=== PATIENT | male | born 1955 | race Caucasian/White ===

== ENCOUNTER 2020-01-30 01:11 | Emergency (ER) | payer OTHER, MEDICARE, SELFPAY ==
[2020-01-30 01:16] VITALS: BP 142/85; PULSE 77; RESP 18; O2SAT 95; BMI 24.3
--- NOTE | 2020-01-30 01:17 | ECG_ITS ---
Measurements Intervals [place] Rate: 71 P: 72 [place]: 143 QRS: 73 QRSD: 85 T: 62 QT: 382 QTc: 417 SINUS RHYTHM No previous ECG available for comparison Electronically Signed On 01-30-2020 13:39:13 CDT by Leidy Dorman M.D. [email or web address]
--- NOTE | 2020-01-30 01:19 | W.ED.GENADLT ---
HPI - General Adult General: Chief complaint: Psychiatric Symptoms Stated complaint: mhe Time Seen by Provider: 01/30/20 01:17 History of Present Illness: HPI narrative: Bret is a 64-year-old male who has moved here from [place]. He states he has been depressed which is a ongoing problem for him. He is not suicidal or homicidal he adamantly states this. The patient states that he is been crying off and on for the past 3 days. He states that in [place] he treats all these symptoms such as depression as well as his symptoms from PTSD and paranoid schizophrenia with cannabis. He moved here thinking that he would have cannabis available but none of the dispensary's are open at this time. He is asking for something prescription for his symptoms until he can get back to [place]. Review of Systems General: Reports: 10 or more systems reviewed and unremarkable except in HPI and below PFSH ED PFSH: Medical History Depression Paranoid schizophrenia PTSD (post-traumatic stress disorder) Social History Smoking and tobacco status: current some day smoker Physical Exam Const: COMMON NORMALS: no apparent distress, oriented x3, no limitations, healthy appearing and well nourished EXAM LIMITATIONS: no altered mental status GENERAL APPEARANCE: cooperative, well kempt and well developed ORIENTATION/CONSCIOUSNESS: Yes awake HENMT: COMMON NORMALS: normocephalic, head/scalp atraumatic, hearing grossly normal bilaterally, external ears normal, EAC's normal, external nose normal and moist oral mucous membranes HEAD & SCALP: normal to inspection, normocephalic and atraumatic FACE & SINUS: normal facial exam and face symmetric NOSE: external nose normal and nares normal EXTERNAL EAR: Yes external ears normal EXTERNAL AUDITORY CANAL: EAC's normal MOUTH: oral and palatal mucosa normal and tongue normal Eye: COMMON NORMALS: PERRL, EOMs intact bilaterally, conjunctivae normal and no scleral icterus GENERAL EYE: normal appearance of both eyes and normal light reflex CONJUNCTIVA: Yes conjunctivae normal SCLERA: sclerae normal CORNEA: Yes corneas normal PUPIL: Yes PERRL DIRECT OPHTHALMOSCOPY: Yes normal light reflex Neck/C-Spine: COMMON NORMALS: full ROM, no lymphadenopathy, supple, no meningeal signs and no JVD GENERAL: Yes normal visual inspection and Yes trachea midline CERVICAL SPINE: Yes cervical ROM normal Chest: COMMONS NORMALS: inspection of chest normal and palpation of chest normal Resp: COMMON NORMALS: normal respiratory effort, no retractions, no use of accessory muscles and clear to auscultation bilaterally EFFORT & INSPECTION: Yes able to speak in complete sentences AUSCULTATION: clear to auscultation bilaterally Cardio: COMMON NORMALS: no JVD, regular rate, regular rhythm, S1 normal heart sound, S2 normal heart sound, no gallops, no clicks, no murmurs and no rub JUGULAR VENOUS DISTENTION: no JVD RATE: regular rate RHYTHM: regular rhythm HEART SOUNDS: S1 normal and S2 normal GI: COMMON NORMALS: soft to palpation, non-tender, no hepatosplenomegaly and no masses INSPECTION: Yes normal to inspection PALPATION: Yes soft and Yes no hepatosplenomegaly : COMMON NORMALS: Yes no CVA tenderness BLADDER/KIDNEY EXAM: Yes no CVA tenderness Back/Pelvis: COMMON NORMALS: no CVA tenderness, thoracic and lumbar spine normal to inspection, no thoracic nor lumbar tenderness and thoraco-lumbar ROM normal Extremity: COMMON NORMALS: normal to inspection, full ROM, normal capillary refill, no joint enlargement, no clubbing, cyanosis or edema and no calf tenderness Neuro: COMMON NORMALS: oriented x3, CN's II-XII intact bilaterally, moves all extremities, no focal motor deficits and no sensory deficits noted MENINGEAL SIGNS: Yes no meningeal signs Psych: COMMON NORMALS: mental status grossly normal, thought process normal, cooperative, affect normal, speech normal and activity/motor behavior normal APPEARANCE: Yes well kempt SPEECH: Yes normal speech THOUGHT PROCESS: normal thought process Skin: COMMON NORMALS: no rashes or lesions noted, skin turgor normal, no jaundice, no petechiae and no mottling GENERAL SKIN EXAM: no rashes or lesions noted and turgor normal Course Vital Signs: Vital signs: Vital Signs Pulse Rate 77 01/30/20 01:16 Respiratory Rate 18 01/30/20 01:16 Blood Pressure 142/85 01/30/20 01:16 Pulse Oximetry 95 01/30/20 01:16 MDM - General Adult MDM Narrative: Medical decision making narrative: I discussed the case by phone with Dr. Martinez, he recommends Prozac 20 mg daily and then have the patient follow-up with [facility] either in [place] or [place]. He believes this would be the best medicine for the patient at this time. I reviewed this with the patient and he refuses to take that medication he wants something else. He states that he has heard bad things about this before and refuses to try it. I have advised him that at this time this is the safest medication that Dr. Martinez is recommending. I do not feel as though I should find something else is the expert has told me this is what is best to use. I have informed the patient I will not prescribe anything else and so he has decided to leave. He has denied suicidal ideation to us. I will discharge him home he states he plans on going to the [place] tomorrow to get a prescription from them. Have also told him about [facility]. I did offer to prescribe the medications the patient can have it if he changed his mind but he says do not give it to me I am not going to use it . Lab Data: Labs: Lab Results 01/30/20 Range/Units 01:20 WBC Cancelled Corrected WBC Cancelled RBC Cancelled Hgb Cancelled Hct Cancelled MCV Cancelled MCH Cancelled MCHC Cancelled RDW Cancelled Plt Count Cancelled MPV Cancelled Gran % Cancelled Neut % (Auto) Cancelled Lymph % (Auto) Cancelled [place] % (Auto) Cancelled Eos % (Auto) Cancelled Baso % (Auto) Cancelled Neut # (Auto) Cancelled Lymph # (Auto) Cancelled [place]eman # (Auto) Cancelled Eos # (Auto) Cancelled Baso # (Auto) Cancelled Absolute Gran (aut o) Cancelled Nucleated RBC % (a uto) Cancelled Nucleated RBCs # Cancelled EKG Data^: EKG 1: Attestation: I personally reviewed and interpreted this EKG as follows: EKG interpretation date: 01/30/20 EKG interpretation time: 01:27 Interpretation: Normal sinus rhythm at 71 beats a minute, no acute ST or T wave changes. Discharge Plan Discharge Patient Disposition: Home, Self-Care Clinical Impression: Depression Qualifiers: Depression Type: unspecified Qualified Code(s): F32.9 - Major depressive disorder, single episode, unspecified Condition: Stable Discharge Orders: Discharge Order (Routine); Ordered 01/30/20 Ordered By: Viviane Urrutia Referrals: [facility], [Staff Physician] - 1-3 days (Follow-up with the [facility] and [facility] as soon as possible for recheck. ) Discharge Diet: Advance as tolerated Discharge Activity: Resume usual activity Patient Instructions: Depression (ED) Activity Restrictions/Additional Instructions: Please return to the ER immediately for any of the signs or symptoms listed on your discharge instruction sheets, worsening/changing of your symptoms, you are not getting better as quickly as expected, or for ANY other cause or concerns. If you change your mind and would like to take the Prozac as recommended you are free to return at any time for reevaluation and to be given a prescription at that time. Follow-up with the [facility] and [facility] [place] as soon as possible or you can go to the [place] clinic as you have discussed. Coding Level of Care Code ED [employer] for Kaya [employer] Exam Comprehensive
== END 2020-01-30 02:07 | disposition home or self-care (01) ==
PROVIDERS: Emergency Provider Emergency Medicine
DX: F32.9 Major depressive disorder, single episode, unspecified (principal); F43.10 Post-traumatic stress disorder, unspecified; F20.0 Paranoid schizophrenia; F17.210 Nicotine dependence, cigarettes, uncomplicated
CPT/HCPCS: 12345; 85025; 93005; 99282; 99283